=== PATIENT | male | born 1955 | race African-American/Black ===

== ENCOUNTER → 2025-09-10 | Outpatient (CLI) | payer MEDICARE, OTHER ==
[2025-09-10 14:12] LABS: ASPARTATE AMINOTRANSFERASE 42 U/L (15-37); CALCIUM, TOTAL 8.3 mg/dL (8.8-10.5); CHOL/HDL RATIO 1.9 (4.2-7.3); CREATININE 1.15 mg/dL (0.60-1.30); GLOMERULAR FILTR. RATE CALC > 60 mL/min (>60); GLUCOSE,RANDOM 99 mg/dL (70-110); LDL CHOL (CALC.) 82 mg/dL (0-130); SODIUM SERUM 140 mmol/L (136-145); TOTAL PROTEIN, SERUM 6.4 g/dL (6.4-8.2); UREA NITROGEN, BLOOD 14 mg/dL (7-18)
== END | disposition home or self-care (01) ==
LOC: RADMN 12:10
PROVIDERS: ATTEND Internal Medicine Cardiovascular Disease
DX: E78.2 Mixed hyperlipidemia (principal)
CPT/HCPCS: 70260; 80053; 80061